=== PATIENT | female | born 1990 | race Caucasian/White ===

== ENCOUNTER 2016-09-13 21:01 | Inpatient (IN) | payer OTHER ==
[2016-09-13] MEDS ORDERED: SODIUM CHLORIDE 1,000 ML IV STA (21:25)
[2016-09-13] MEDS ORDERED: ACETAMINOPHEN 1000 MG/100 ML VIAL (NON FORMULARY) IVPB ONE (21:30)
[2016-09-13] MEDS ORDERED: ACETAMINOPHEN INJECTION 100 ML IVPB ONE (21:43)
[2016-09-13 21:45] LABS: BASOPHIL 0.8 % (0-2.0); EOSINOPHIL 1.8 % (0-4.5); MCHC 32.6 g/dl (32.0-36.0); MEAN PLT VOLUME 9.7 fl (7.5-11.1); NEUTROPHILS 73.1 % (42.8-82.8); PLATELET COUNT 311 K/MM3 (134-434); RDW 16.6 % (11.6-15.6); WHITE BLOOD COUNT 9.3 K/mm3 (4.0-10.0)
--- NOTE | 2016-09-13 22:07 | PDOC ---
History of Present Illness - History of Present Illness Initial Comments: 09/13/16 22:08 Patient is a 25 year old female with significant medical hx of anemia, asthma, and hypothyroidism who is presenting to the ED with two weeks of vaginal bleeding that worsened today. Two weeks ago the patient took an pill from [facility], and then took four more the following day (as prescribed). She states that she passed a few blood clots afterwards and then had two weeks of a regular period. This morning the patient woke up with severe abdominal cramping and passed a large blood clot; she has been heavily bleeding since. The patient endorses some lower back pain and feeling as if she is going to faint. She states that her abdominal pain has become sharp while being in the ED. The patient had a similar experience two years after taking pills. She was admitted to [facility] and needed a blood transfusion. Patient has irregular menses. LNMP: 07/07/16; /A2 Last : full term, <Ana Lilia Benitez - Last Filed: 09/14/16 00:02> - General History Source: Patient Exam Limitations: No Limitations <Tam Hodges - Last Filed: 09/14/16 00:37> - General Chief Complaint: Vaginal Bleeding Stated Complaint: VAGINAL BLEEDING Time Seen by Provider: 09/13/16 21:24 Past History <Ana Lilia Benitez - Last Filed: 09/14/16 00:02> - Past Medical History Anemia: Yes Asthma: Yes Thyroid Disease: Yes - Immunization History Immunization Up to Date: Yes - Psycho/Social/Smoking Cessation Hx Anxiety: No Suicidal Ideation: No Smoking Status: No Smoking History: Never smoked Number of Cigarettes Smoked Daily: 0 <Tam Hodges - Last Filed: 09/14/16 00:37> - Past Medical History Allergies/Adverse Reactions: Allergies Allergy/AdvReac Type Severity Reaction Status Date / Time No Known Allergies Allergy Verified 09/13/16 21:04 Home Medications: Ambulatory Orders Levothyroxine [Synthroid -] 112 mcg PO DAILY 10/20/11 Albuterol Sulfate Inhaler - [Ventolin HFA Inhaler -] 2 inh IH Q4H PRN #1 inh 22/06 Benzonatate [Tessalon Perle] 100 mg PO TID PRN #30 capsule 02/21/12 Cetirizine HCl [Zyrtec] 10 mg PO DAILY #0 capsule 02/21/12 Salmeterol/Fluticasone [Advair 250Mcg/50Mcg] 1 inh PO BID #1 diskus 02/21/12 Review of Systems - Review of Systems Comments:: 09/13/16 22:09 GENERAL/CONSTITUTIONAL: No fever or chills. No weakness. HEAD, EYES, EARS, NOSE AND THROAT: No change in vision. No ear pain or discharge. No sore throat. CARDIOVASCULAR: No chest pain or shortness of breath. RESPIRATORY: No cough, wheezing, or hemoptysis. GASTROINTESTINAL: Abdominal pain, cramping. No nausea, vomiting, diarrhea or constipation. GENITOURINARY: Vaginal bleeding. No dysuria, frequency, or change in urination. MUSCULOSKELETAL: Lower back pain. No joint or muscle swelling or pain. No neck or back pain. SKIN: No rash NEUROLOGIC: No headache, vertigo, loss of consciousness, or change in strength/ sensation. <Ana Lilia Benitez - Last Filed: 09/14/16 00:02> *Physical Exam - Vital Signs Last Vital Signs Temp Pulse Resp BP Pulse Ox 99 F 135 H 20 157/95 99 09/13/16 21:04 09/13/16 21:04 09/13/16 21:04 09/13/16 21:04 09/13/16 21:04 - Physical Exam Comments: 09/13/16 22:11 GENERAL: Uncomfortable appearing. Awake, alert, and fully oriented. HEAD: No signs of trauma EYES: PERRLA, EOMI, sclera anicteric, conjunctiva clear ENT: Auricles normal inspection, hearing grossly normal, nares patent, oropharynx clear without exudates. Moist mucosa NECK: Normal ROM, supple, no lymphadenopathy, JVD, or masses LUNGS: Breath sounds equal, clear to auscultation bilaterally. No wheezes, and no crackles HEART: Regular rate and rhythm, normal S1 and S2, no murmurs, rubs or gallops ABDOMEN: Soft, suprapubic tenderness, normoactive bowel sounds. No guarding, no rebound. No masses EXTREMITIES: Normal range of motion, no edema. No clubbing or cyanosis. No cords, erythema, or tenderness NEUROLOGICAL: Cranial nerves II through XII grossly intact. Normal speech, normal gait SKIN: Warm, Dry, normal turgor, no rashes or lesions noted. ENDOCRINE: No increased thirst. No abnormal weight change. HEMATOLOGIC/LYMPHATIC: No anemia, easy bleeding, or history of blood clots. ALLERGIC/IMMUNOLOGIC: No hives or skin allergy. PELVIC: Profuse vaginal bleeding. Cervical Os closed. Cervical tenderness appreciated. <Ana Lilia Benitez - Last Filed: 09/14/16 00:02> - Vital Signs Last Vital Signs Temp Pulse Resp BP Pulse Ox 99 F 135 H 20 157/95 99 09/13/16 21:04 09/13/16 21:04 09/13/16 21:04 09/13/16 21:04 09/13/16 21:04 <Tam Hodges - Last Filed: 09/14/16 00:37> ED Treatment Course - LABORATORY CBC & Chemistry Diagram: 09/13/16 23:19 09/13/16 21:30 - ADDITIONAL ORDERS Additional order review: 09/13/16 21:30 RBC 3.68 MCV 86.0 MCHC 32.6 RDW 16.6 H MPV 9.7 Neutrophils % 73.1 Lymphocytes % 16.7 Monocytes % 7.6 Eosinophils % 1.8 Basophils % 0.8 - RADIOLOGY Radiograph Interpretation: 09/14/16 00:02 Manager Ambulatory: ([email or web address]) Report Date: 09/13/2016 22:17:00 Report Status: Preliminary Begin of Report Content Referring Physician: Tam Hodges Patient Name: Sydni Sauer This is a preliminary report by imaging waste minimization technician Exam: Transabdominal and endovaginal sonogram and duplex sonography Images: 45 Clinical indication: Status post methotrexate with vaginal bleed. Findings: The uterus is anteverted and measures 9.6 x 4.8 x 6.2 cm on transabdominal images. The left ovary measures 3.2 x 1.6 x 2.7 cm contains follicles and a follicular cyst. Has a normal appearance and demonstrates normal arterial flow on color Doppler images. The right ovary measures 2.4 x 1.7 x 2.2 cm contains follicles has a normal appearance and demonstrates normal arterial flow on color Doppler images. The endometrium is thickened and heterogeneous with anechoic foci and focal hypervascularity seen in the mid uterine segment. The endometrium is thickened up to 1.4 cm in diameter with echogenic material seen in the endocervical canal. No free fluid seen Impression: Thickened vascular heterogeneous endometrium with complex material extending into the endocervical canal, likely passing products of conception. Normal appearance of both ovaries with normal vascular flow seen bilaterally. THIS DOCUMENT HAS BEEN ELECTRONICALLY SIGNED Elian Goodrich M.D. 09/13/2016 23:48 JAGRUTI Nguyen Please call Imaging Gravel Machine Operator [phone] ([phone]) with questions. End of Report Content - Medications Given in the ED: ED Medications Discontinued Medications Generic Name Dose Route Start Last Admin Trade Name Freq PRN Reason Stop Dose Admin Acetaminophen 1,000 mg 09/13/16 21:30 09/13/16 21:48 Ofirmev Injection - IVPB 09/13/16 21:31 1,000 mg ONCE ONE Administration <Ana Lilia Benitez - Last Filed: 09/14/16 00:02> - LABORATORY CBC & Chemistry Diagram: 09/13/16 23:19 09/13/16 21:30 - ADDITIONAL ORDERS Additional order review: 09/13/16 21:30 RBC 3.68 MCV 86.0 MCHC 32.6 RDW 16.6 H MPV 9.7 Neutrophils % 73.1 Lymphocytes % 16.7 Monocytes % 7.6 Eosinophils % 1.8 Basophils % 0.8 - Medications Given in the ED: ED Medications Discontinued Medications Generic Name Dose Route Start Last Admin Trade Name Freq PRN Reason Stop Dose Admin Acetaminophen 1,000 mg 09/13/16 21:30 09/13/16 21:48 Ofirmev Injection - IVPB 09/13/16 21:31 1,000 mg ONCE ONE Administration <Tam Hodges - Last Filed: 09/14/16 00:37> Medical Decision Making - Medical Decision Making 09/13/16 22:03 A portion of this note was documented by scribe services under my direction. I have reviewed the details of the note, within reason, and agree with the documentation with the following case summary and management plan written by me. Patient treated in the ED. Nursing notes are reviewed and incorporated into the medical decision-making. Vital signs reviewed. Peripheral IV access obtained by the nurse, laboratory studies are drawn and sent, reviewed and interpreted by myself. Vital Signs Temp Pulse Resp BP Pulse Ox 99 F 135 H 20 157/95 99 09/13/16 21:04 09/13/16 21:04 09/13/16 21:04 09/13/16 21:04 09/13/16 21:04 25-year-old female with past medical history of asthma, presents with profuse vaginal bleeding. The patient reports that she was approximately 6 weeks when she underwent methotrexate therapy 2 weeks ago at [facility] for a planned medical . Patient reported some vaginal spotting reported profuse bleeding and suprapubic cramping and abdominal pain today. Patient reports that she had a similar incident 2 years ago where she was admitted to [facility] and required blood transfusions. Denies any prior history of fibroids or ovarian cysts. I suspect that with the use of methotrexate, this had let to the patient's profuse vaginal bleeding. There is quite bit of blood in the vaginal vault and the patient's tachycardic. court recording monitor ordered. IV fluids ordered. Labs and type and screen ordered. Transvaginal ultrasound. We'll need to have serial hct and discuss case with COFFEE BREWER. 09/14/16 00:33 CBC, BMP 09/13/16 23:19 09/13/16 21:30 CMP Sodium 138 mmol/L (136-145) 09/13/16 21:30 Potassium 3.6 mmol/L (3.5-5.1) 09/13/16 21:30 Chloride 104 mmol/L (98-107) 09/13/16 21:30 Carbon Dioxide 25 mmol/L (21-32) 09/13/16 21:30 Anion Gap 9 (8-16) 09/13/16 21:30 BUN 12 mg/dL (7-18) 09/13/16 21:30 Creatinine 0.9 mg/dL (0.55-1.02) 09/13/16 21:30 Creat Clearance w eGFR > 60 (>60) 09/13/16 21:30 Random Glucose 99 mg/dL (74-106) 09/13/16 21:30 Calcium 8.8 mg/dL (8.5-10.1) 09/13/16 21:30 Total Bilirubin 0.9 mg/dL (0.2-1.0) 09/13/16 21:30 AST 17 U/L (15-37) 09/13/16 21:30 ALT 15 U/L (12-78) 09/13/16:30 Alkaline Phosphatase 54 U/L (45-117) 09/13/16 21:30 Total Protein 7.6 g/dl (6.4-8.2) 09/13/16: Albumin 4.0 g/dl (3.4-5.0) 09/13/16: Beta HCG, Quant 41734.0 mIU/ml 09/13/16: CBC 10.3 --> 8.3 (after receiving 400cc of IV NS). Pt continues to have vaginal bleed. Ultrasound shows: thickened vascular heterogensou endometrium with complex material extending into the endocervical canal, likely passing products of conceptions. Case discussed with Dr. Lewis. Given the drop in Hgb, will need to obtain serial Hcts. At this time, recommends 0.2 mg IM methergine and accepts patient for admission. Case discussed in detail with admitting physician including history, physical exam and ancillary studies. Admitting physician has assumed care for the patient, will follow all pending diagnostics and will complete the evaluation and treatment. <aTm Hodges - Last Filed: 09/14/16 00:37> *DC/Admit/Observation/Transfer - Attestations Scribe Attestion: 09/13/16 22:13 Documentation prepared by Ana Lilia Benitez, acting as medical affairs specialist for Tam Hodges MD. <Ana Lilia Benitez - Last Filed: 09/14/16 00:02> - Discharge Dispostion Admit: Yes <Tam Hodges - Last Filed: 09/14/16 00:37> Diagnosis at time of Disposition: Vaginal bleeding - Discharge Dispostion Condition at time of disposition: Stable
[2016-09-13 22:08] LABS: ANION GAP 9 (8-16); BILIRUBIN,TOTAL 0.9 mg/dL (0.2-1.0); CALCIUM 8.8 mg/dL (8.5-10.1); CO2 25 mmol/L (21-32); CREATININE 0.9 mg/dL (0.55-1.02); GLUCOSE,RANDOM 99 mg/dL (74-106); SGOT/AST 17 U/L (15-37); SGPT/ALT 15 U/L (12-78); TOT PROT 7.6 g/dl (6.4-8.2)
[2016-09-13 22:24] LABS: ALK PHOS 54 U/L (45-117)
[2016-09-13] MEDS ORDERED: morphine CARPU-JECT 4 MG/1 ML DISP.SYRIN IVPUSH ONE (23:17)
[2016-09-13] MEDS ORDERED: morphine CARPU-JECT 2 MG/1 ML DISP.SYRIN IVPUSH ONE (23:20)
[2016-09-13] MEDS ORDERED: morphine CARPU-JECT 2 MG/1 ML DISP.SYRIN ONE (23:22)
[2016-09-13 23:34] LABS: BASOPHIL 0.5 % (0-2.0); EOSINOPHIL 1.2 % (0-4.5); MCHC 32.2 g/dl (32.0-36.0); MEAN CELL VOLUME 86.9 fl (80-96); MEAN PLT VOLUME 9.9 fl (7.5-11.1); NEUTROPHILS 79.4 % (42.8-82.8); PLATELET COUNT 247 K/MM3 (134-434); RDW 16.5 % (11.6-15.6); WHITE BLOOD COUNT 9.7 K/mm3 (4.0-10.0)
[2016-09-14] MEDS ORDERED: METHYLERGONOVINE MALEATE 0.2 MG/1 ML AMP IM ONE (00:29)
[2016-09-14] MEDS ORDERED: METHYLERGONOVINE MALEATE 0.2 MG/1 ML AMP ONE (00:52)
[2016-09-14] MEDS: DEXTROSE 5%-NORMAL SALINE 1,000 ML IV SCH ×2 (01:00→15:00)
[2016-09-14 02:21] VITALS: BMI 32.5
[2016-09-14] MEDS ORDERED: oxyCODONE HCL 5 MG TABLET PO ONE (06:00)
[2016-09-14 09:20] LABS: URINE APPEARANCE SLCLOUDY; URINE BILIRUBIN NEGATIVE (NEGATIVE); URINE COLOR YELLOW; URINE GLUCOSE (UA) NEGATIVE (NEGATIVE); URINE KETONE NEGATIVE (NEGATIVE); URINE LEUK ESTERASE NEGATIVE (NEGATIVE); URINE NITRITE NEGATIVE (NEGATIVE); URINE UROBILINOGEN NEGATIVE E.U./dl (0.2-1.0)
[2016-09-14 09:21] LABS: URINE BLOOD 3+ (NEGATIVE); URINE PROTEIN 1+ (NEGATIVE)
[2016-09-14 09:27] LABS: URINE MUCUS MODERATE; URINE RBC 3187 /hpf (0-3); URINE WBC 44 /hpf (3-5)
[2016-09-14 09:48] LABS: MCH 27.3 pg (25.7-33.7); MCHC 31.4 g/dl (32.0-36.0); MEAN CELL VOLUME 86.9 fl (80-96); MEAN PLT VOLUME 9.3 fl (7.5-11.1); PLATELET COUNT 200 K/MM3 (134-434); RDW 16.5 % (11.6-15.6); WHITE BLOOD COUNT 4.8 K/mm3 (4.0-10.0)
--- NOTE | 2016-09-14 12:52 | HP ---
Admitting History and Physical - Admission Chief Complaint: vaginal bleeding History of Present Illness: 25 y/o s/p ETOP presents to hospital with bleeding. SHe was monitored and admitted with declining h/h and normal vitals. Pt today states with bleeding and dizziness and will elect for d nc . History Source: Patient Limitations to Obtaining History: No Limitations - Past Medical History ELECTRICAL CONTINUITY TESTER: No: Alzheimer's, CVA, Dementia, Migraine, Multiple Sclerosis, Peripheral Neuropathy, Parkinson's, Seizure, Syncope, TIA, Vertigo, Other Cardiovascular: No: AFIB, Aneurysm, Aortic Insufficiency, Aortic Stenosis, CAD, CHF, Deep Vein Thrombosis, HTN, Hyperlipdemia, MD, Mitral Insufficiency, Mitral Stenosis, Murmur, Pulmonary Hypertension, Other Pulmonary: No: Asthma, Bronchitis, Cancer, COPD, O2 Dependent, Pneumonia, Previously Intubated, Pulmonary Embolus, Pulmonary Fibrosis, Sleep Apnea, Other Gastrointestinal: No: Ascites, Cancer, Constipation, Crohn's Disease, Diverticulitis, Diverticulosis, Esophageal Varices, Gastritis, GERD, GI Bleed, Hemorrhoids, Hiatal Hernia, Inflamatory Bowel Disease, Irritable Bowel Disease, Pancreatitis, Peptic Ulcer Disease, Ulcerative Colitis, Other ...LMP: 07/07/16 ...: Yes Heme/Onc: No: Anemia, B12 Deficiency, Bleeding Disorder, Cancer, Current Chemotherapy, Current Radiation Therapy, Hemochromatosis, Hypercoaguable State, Myeloproliferative Synd, Sickle Cell Disease, Sickle Cell Trait, Thrombocytopenia, Other Infectious Disease: No: AIDS, C-Diff, Herpes Zoster, HIV, MRSA, STD's, Tuberculosis, VREF, Other Musculoskeletal: No: Bursitis, Chronic low back pain, Hemiparesis, Hemiplegia, Osteoarthritis, Paraplegia, Other Rheumatology: No: Fibromyalgia, Gout, Lupus, Rheumatoid Arthritis, Sarcoidosis, Vasculitis, Other Endocrine: No: Mcintosh's Disease, Zurdo's Disease, Diabetes Insipidus, Diabetes Mellitus, Hyperparathyroidism, Hyperthyroidism, Hypothyroidism, Osteopenia, SIADH, Other Dermatology: No: Basal Cell, Cellulitis, Eczema, Melanoma, Psoriasis, Squamous Cell, Other - Past Surgical History Past Surgical History: No: None, AAA Repair, AICD, Amputation, Appendectomy, Arthrosocopy, AV Fistula/Graft, Bariatric Surgery, Breast Biopsy, Bypass, CABG, Carotid Endarterectomy, Cataract Removal, Cholecystectomy, Colectomy, Colonoscopy, Colostomy, Craniotomy, , Cystectomy, Hernia Repair, Hysterectomy, Ileal Conduit, Ileosotomy, Joint Replacement, Kidney Transplant, Laminectomy, Liver Transplant, Mastectomy, Nephrectomy, Oopherectomy, Orchiectomy, Permanent Pacemaker, Prostatectomy, Splenectomy, Stent, Thoracotomy , TURP, Tonsillectomy, Tubal Ligation, Upper Endoscopy, Valve Replacement, Vasectomy, Vein Stripping/Ligation - Advance Directives Advance Directives: No: Living Will, Health Care Proxy, DNR, Organ Donor, Tissue Donor, MOLST - Smoking History Smoking history: Never smoked Aproximately how many cigarettes per day: 0 - Alcohol/Substance Use Hx Alcohol Use: No History of Substance Use: denies: None, Cocaine, Heroin, Marijuana, Prescription , Tranquilizers - Social History Usual Living Arrangement: No: Alone, With Spouse, With Parent, With Significant Other, With Child, Assisted Living, Custodial, Other Home Medications - Allergies Allergies/Adverse Reactions: Allergies Allergy/AdvReac Type Severity Reaction Status Date / Time No Known Allergies Allergy Verified 09/13/16 21:04 - Home Medications Home Medications: Ambulatory Orders Levothyroxine [Synthroid -] 112 mcg PO DAILY 10/20/11 Albuterol Sulfate Inhaler - [Ventolin HFA Inhaler -] 2 inh IH Q4H PRN #1 inh 22/06 Benzonatate [Tessalon Perle] 100 mg PO TID PRN #30 capsule 02/21/12 Cetirizine HCl [Zyrtec] 10 mg PO DAILY #0 capsule 02/21/12 Salmeterol/Fluticasone [Advair 250Mcg/50Mcg] 1 inh PO BID #1 diskus 02/21/12 Review of Systems - Review of Systems Constitutional: reports: Weakness Eyes: reports: No Symptoms HENT: reports: No Symptoms Neck: reports: No Symptoms Cardiovascular: reports: No Symptoms Respiratory: reports: No Symptoms Gastrointestinal: reports: No Symptoms Genitourinary: reports: Discharge, Vaginal Bleeding Breasts: reports: No Symptoms Reported Musculoskeletal: reports: No Symptoms Integumentary: reports: No Symptoms Neurological: reports: No Symptoms Endocrine: reports: No Symptoms Hematology/Lymphatic: reports: No Symptoms Psychiatric: reports: No Symptoms Physical Examination Vital Signs: Vital Signs Temperature 97.7 F 09/14/16 09:00 Pulse Rate 69 09/14/16 09:00 Respiratory Rate 20 09/14/16 09:00 Blood Pressure 103/65 09/14/16 09:00 O2 Sat by Pulse Oximetry (%) 100 09/14/16 09:00 Constitutional: Yes: Well Nourished Eyes: Yes: WNL HENT: Yes: WNL Neck: Yes: WNL Cardiovascular: Yes: WNL Respiratory: Yes: WNL Gastrointestinal: Yes: WNL (has vag bleeding) Labs: CBC, BMP 09/14/16 09:10 Assessment/Plan as absove admit labs transformation coach to OR
[2016-09-14] MEDS ORDERED: MIDAZOLAM HCL 2 MG/2 ML SINGLE DOSE VIAL ONE ×2 (13:42)
[2016-09-14] MEDS ORDERED: PROPOFOL 20 ML ONE (13:42)
[2016-09-14] MEDS ORDERED: LIDOCAINE HCL/PF 2% SDV 5ML VIAL ONE (13:42)
[2016-09-14] MEDS ORDERED: ONDANSETRON 4 MG/2 ML VIAL IVPUSH PRN (13:58)
[2016-09-14] MEDS ORDERED: oxyCODONE HCL 5 MG TABLET PO PRN (13:58)
--- NOTE | 2016-09-14 13:59 | PN ---
Progress Note (short form) - Note Progress Note: d n c completed, tisues seen at os. Uncomplicated
[2016-09-14] MEDS ORDERED: PROMETHAZINE HCL 25 MG/1 ML VIAL ONE (14:27)
[2016-09-14] MEDS ORDERED: PROMETHAZINE HCL 25 MG/1 ML VIAL IVPUSH PRN (14:31)
[2016-09-14 18:11] LABS: BASOPHIL 0.7 % (0-2.0); EOSINOPHIL 1.6 % (0-4.5); MCH 27.7 pg (25.7-33.7); MCHC 31.8 g/dl (32.0-36.0); NEUTROPHILS 66.3 % (42.8-82.8); PLATELET COUNT 189 K/MM3 (134-434); RDW 16.4 % (11.6-15.6); WHITE BLOOD COUNT 4.7 K/mm3 (4.0-10.0)
[2016-09-15] MEDS ORDERED: ACETAMINOPHEN 1000 MG/100 ML VIAL (NON FORMULARY) IVPB ONE (01:51)
--- NOTE | 2016-09-15 01:55 | HOSP ---
Subjective - Review of Symptoms Events since last encounter: 09/15/2016 Was paged by the nurse at 1:30am to inform that patient has been complaining of dizziness. Went to assess the patient. The RN mentioned that he called Dr. Hemphill and he recommended the hospitalist to see the patient. As per the patient, she has been having dizziness for the past few days which has been the same. She gets vertigo on/off and now has terrible frontal headache with pain in her eye balls, 6/10 in intensity, throbbing in nature. Has photophobia and wanted the room light to be turned off. Denies loc, tingling , numbness, nausea or vomiting. Also states that she is still bleeding and has mild abdominal cramps. Patient mentions that she has been coughing since 2 days, productive, yellowish- whitish phelgm, no blood. Denies fever, chills, rigors and sweating. Due to coughing has soreness in her chest. Has Shortness of breath on/off. Physical Examination: Vitals: BP-85/45mmHg ; P-69bpm ; Temp-97.9F ; Spo2- 99% at RA ; RR- 15 General: Young female, awake, alert, oriented x 3, in no respiratory distress. HEENT: EOM intact, no pallor or icterus. Chest: B/L lungs clear, no added sounds CVS: Regular, S1, S2 no murmur Abdomen: Soft, tenderness on palpation over the lower abdomen, no organomegaly. Extremities: peripheral pulses intact, no edema. A/P # Frontal Headache with photophobia-unknown etiology Will order one time dose of IV tylenol. # SOB, cough- R/O pneumonia Will order Chest x-ray stat Nasal oxygen PRN # Abdominal cramps-likely due to the procedure (Dilatation and Curettage) Still has vaginal bleeding # Anemia likely due to blood loss. Latest Hb-6.8. Received one unit of blood and is going to receive the second unit which will finish at around 6am. Will order repeat CBC at 7:30 am # Hypotensive-likely due to volume loss Patient on IV fluids and blood transfusion Monitor blood pressure closely. Recommended RN to inform the MD stat if blood pressure drops from previous readings. Plan of care explained to the patient. She verbalized understanding. Case discussed with Dr. Sánchez. Physical Examination Vital Signs: Vital Signs Temperature 97.8 F 09/14/16 21:00 Pulse Rate 70 09/14/16 21:00 Respiratory Rate 16 09/14/16 21:00 Blood Pressure 91/51 09/14/16 21:00 O2 Sat by Pulse Oximetry (%) 100 09/14/16 20:00 Labs: CBC, BMP 09/14/16 17:42 Visit type - Emergency Visit Emergency Visit: Yes ED Registration Date: 09/14/16 Care time: The patient presented to the Emergency Department on the above date and was hospitalized for further evaluation of their emergent condition. - New Patient This patient is new to me today: Yes Date on this admission: 09/15/16 - Critical Care Critical Care patient: No
[2016-09-15 06:30] VITALS: BP 103/62; PULSE 64; TEMP 97.8
[2016-09-15 08:15] LABS: EOSINOPHIL 2.3 % (0-4.5); MCH 28.6 pg (25.7-33.7); MCHC 33.4 g/dl (32.0-36.0); MEAN CELL VOLUME 85.7 fl (80-96); MEAN PLT VOLUME 8.8 fl (7.5-11.1); NEUTROPHILS 53.5 % (42.8-82.8); PLATELET COUNT 158 K/MM3 (134-434); RDW 16.7 % (11.6-15.6); WHITE BLOOD COUNT 4.9 K/mm3 (4.0-10.0)
[2016-09-15 09:11] LABS: CALCIUM 7.5 mg/dL (8.5-10.1); CREATININE 0.7 mg/dL (0.55-1.02)
[2016-09-15] MEDS: oxyCODONE HCL 5 MG TABLET PO PRN ×2 (10:05→18:50)
--- NOTE | 2016-09-17 14:02 | PATH ---
Surgical Pathology Report Patient Name: JHONY JON [facility]. Rec. #: [id number] /Age/Gender: 1990 (Age: 25) / F Account: [id number] Location: [address] [place] [address] Taken: 09/14/2016 Received: 09/16/2016 Reported: 09/17/2016 Physicians: Butch Lewis M.D. Specimen(s) Received UTERINE CONTENTS Clinical History Incomplete Final Diagnosis UTERINE CONTENTS, EVACUATION: CHORIONIC VILLI CONSISTENT WITH PRODUCTS OF CONCEPTION, ALONG WITH NECROTIC AND HEMORRHAGIC TISSUE. Electronically Signed Stevan Kay M.D. Gross Description Received in formalin labeled "intrauterine suction," is a 10.5 x 9.0 x 1.2 cm aggregate of arrieta-brown soft tissue fragments admixed with blood clot. No definite villous tissue or somatic tissue is identified. Technical Operations Manager sections are submitted in 3 cassettes. /09/16/2016 [facility]/09/16/2016
== END 2016-09-15 19:31 | disposition home or self-care (01) | DRG 770 ==
LOC: JER 21:01 → JERBED 09-14 00:37 → UNDOADMIN 09-14 00:47 → JERBED 09-14 00:47 → J6S 09-14 01:38
PROVIDERS: ADMIT Obstetrics & Gynecology; ATTEND Obstetrics & Gynecology
PROC: 10D17ZZ Extraction of Products of Conception, Retained, Via Natural or Artificial Opening (ICD-10-PCS; principal; 2016-09-14 12:00)
PROC: 30233N1 Transfusion of Nonautologous Red Blood Cells into Peripheral Vein, Percutaneous Approach (ICD-10-PCS; 2016-09-15)
DX: O03.4 Incomplete spontaneous abortion without complication (principal); N93.8 Other specified abnormal uterine and vaginal bleeding; E03.9 Hypothyroidism, unspecified; J45.909 Unspecified asthma, uncomplicated; D64.9 Anemia, unspecified; G44.89 Other headache syndrome; H53.149 Visual discomfort, unspecified; D50.0 Iron deficiency anemia secondary to blood loss (chronic)
CPT/HCPCS: 36415; 36430; 71010-TC; 76830-TC; 80048; 80053; 81003; 81015; 84702; 85025; 85027; 86850; 86900; 86901; 86922; 87086; 88305-TC; 94760; 99284-25; P9038; P9058

== ENCOUNTER 2016-09-18 18:29 | Inpatient (IN) | payer OTHER ==
[2016-09-18 18:34] VITALS: BMI 32.9
[2016-09-18] MEDS ORDERED: SODIUM CHLORIDE 1,000 ML IV STA (19:07)
[2016-09-18] MEDS ORDERED: CARBOPROST TROMETHAMINE 250 MCG/ML AMPUL IM ONE (19:22)
[2016-09-18] MEDS ORDERED: METHYLERGONOVINE MALEATE 0.2 MG/1 ML AMP IM ONE (19:22)
[2016-09-18] MEDS ORDERED: METHYLERGONOVINE MALEATE 0.2 MG/1 ML AMP ONE (19:30)
[2016-09-18 19:32] LABS: BASOPHIL 0.6 % (0-2.0); EOSINOPHIL 2.1 % (0-4.5); MCH 28.4 pg (25.7-33.7); MCHC 32.7 g/dl (32.0-36.0); MEAN CELL VOLUME 86.9 fl (80-96); MEAN PLT VOLUME 9.9 fl (7.5-11.1); NEUTROPHILS 64.8 % (42.8-82.8); PLATELET COUNT 291 K/MM3 (134-434); RDW 16.4 % (11.6-15.6); WHITE BLOOD COUNT 7.1 K/mm3 (4.0-10.0)
--- NOTE | 2016-09-18 19:34 | PDOC ---
History of Present Illness <Mirza Ramon - Last Filed: 09/18/16 22:57> - General History Source: Patient, Old Records Exam Limitations: No Limitations - History of Present Illness Initial Comments: 09/18/16 20:37 The patient is a 25 year old female, with a significant past medical history of anemia, asthma and thyroid disease, who presents to the emergency department with heavy vaginal bleeding. She reports that she was 6 weeks when she [facility] She was seen in the ED on 09/13/2016 for the same symptoms, including abdominal cramping and was admited for anemia. She recieved a total of 2 blood transfusions. The patient had a similar episode 2 years ago, for which she was admitted to [facility] and required blood transfusions as well. The patitent denies any prior history of fibroids or ovarian cysts. At that time she had a transvaginal ultrasound, which showed: Thickened vascular heterogeneous endometrium with complex material extending into the endocervical canal, likely passing products of conception. Normal appearance of both ovaries with normal vascular flow seen bilaterally. The patient denies chest pain, shortness of breath, headache and dizziness. Denies fever, chills, nausea, vomit, diarrhea and constipation. 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 <Vince Mercado - Last Filed: 09/18/16 23:50> - General Chief Complaint: Vaginal Bleeding Stated Complaint: VAGINAL BLEEDING Time Seen by Provider: 09/18/16 18:53 Past History - Past Medical History Anemia: Yes Asthma: Yes Thyroid Disease: Yes - Reproductive History Cervical CA: No Dysfunctional Uterine Bleeding: No Ectopic : Yes Endometrial CA: No Polycystic Ovaries: No Tubal Ligation: No - Immunization History Immunization Up to Date: Yes - Psycho/Social/Smoking Cessation Hx Anxiety: No Suicidal Ideation: No Smoking Status: No Smoking History: Never smoked Number of Cigarettes Smoked Daily: 0 Hx Alcohol Use: No Drug/Substance Use Hx: No <Mirza Ramon - Last Filed: 09/18/16 22:57> <Vince Mercado - Last Filed: 09/18/16 23:50> - Past Medical History Allergies/Adverse Reactions: Allergies Allergy/AdvReac Type Severity Reaction Status Date / Time No Known Allergies Allergy Verified 09/18/16 18:35 Home Medications: Ambulatory Orders Levothyroxine [Synthroid -] 100 mcg PO DAILY 10/20/11 Albuterol Sulfate Inhaler - [Ventolin HFA Inhaler -] 2 inh IH Q4H PRN #1 inh 22/06 Review of Systems - Review of Systems Able to Perform ROS?: Yes Comments:: 09/18/16 20:37 CONSTITUTIONAL: No fever, no chills, no fatigue EYES: No visual changes ENT: No ear pain, no sore throat CARDIOVASCULAR: No chest pain, no palpitations RESPIRATORY: No cough, no SOB GI: No abdominal pain, no nausea, no vomiting, no constipation, no diarrhea GENITOURINARY: +Vaginal bleeding. No dysuria, no frequency. MUSKULOSKELETAL: No backpain, no joint pain, no myalgias SKIN: No rash NEURO: No headache <Vince Mercado - Last Filed: 09/18/16 23:50> *Physical Exam - Vital Signs Last Vital Signs Temp Pulse Resp BP Pulse Ox 98.2 F 95 H 20 120/68 100 09/18/16 18:31 09/18/16 18:31 09/18/16 18:31 09/18/16 18:31 09/18/16 18:31 <Mirza Ramon - Last Filed: 09/18/16 22:57> - Vital Signs Last Vital Signs Temp Pulse Resp BP Pulse Ox 98.2 F 95 H 20 120/68 100 09/18/16 18:31 09/18/16 18:31 09/18/16 18:31 09/18/16 18:31 09/18/16 18:31 - Physical Exam Comments: 09/18/16 20:37 CONSTITUTIONAL: Pale-appearing; well-nourished HEAD: Normocephalic; atraumatic EYES: PERRL; EOM intact ENMT: External appears normal; normal oropharynx NECK: Supple; non-tender; no cervical lymphadenopathy CARD: Normal S1, S2; no murmurs, rubs, or gallops RESP: Normal chest excursion with respiration; breath sounds clear and equal bilaterally; no wheezes, rhonchi, or rales ABD: Soft, non-distended; non-tender; no palpable organomegaly, no palpable hernias EXT: Normal ROM in all four extremities; non-tender to palpation; distal pulses intact SKIN: Warm, dry, no rash NEURO: No focal neurological deficiencies. PELVIC EXAM: +Large amount of blood and brisk pooling of bright red blood in vaginal vault, unable to evaluated vaginal os <Vince Mercado - Last Filed: 09/18/16 23:50> ED Treatment Course - LABORATORY CBC & Chemistry Diagram: 09/18/16 22:38 09/18/16 19:08 <Mirza Ramon - Last Filed: 09/18/16 22:57> - LABORATORY CBC & Chemistry Diagram: 09/18/16 22:38 09/18/16 19:08 - ADDITIONAL ORDERS Additional order review: 09/18/16 19:08 RBC 3.96 D MCV 86.9 MCHC 32.7 RDW 16.4 H MPV 9.9 D Neutrophils % 64.8 D Lymphocytes % 22.8 D Monocytes % 9.7 Eosinophils % 2.1 Basophils % 0.6 - RADIOLOGY Radiograph Interpretation: 09/18/16 22:18 Transvaginal ultrasound Reviewed by: Dr. Thony Ibrahim Impression: Thickened endometrium measuring 1.3 cm in AP dimension with heterogenous echotexture and vascular flow on the color doppler images suspicious for retained products of conception. - Medications Given in the ED: ED Medications Discontinued Medications Generic Name Dose Route Start Last Admin Trade Name Freq PRN Reason Stop Dose Admin Carboprost Tromethamine 200 mcg 09/18/16 19:22 09/18/16 19:41 Hemabate - IM 09/18/16 19:23 200 mcg ONCE ONE Administration Methylergonovine Maleate 0.2 mg 09/18/16 19:22 09/18/16 19:33 Methergine Injection - IM 09/18/16 19:23 0.2 mg ONCE ONE Administration <Vince Mercado - Last Filed: 09/18/16 23:50> Medical Decision Making - Medical Decision Making 09/18/16 19:33 Patient is a 25-year-old female status post medical 3 weeks previously , status post D&C for incomplete 5 days previously presents with severe vaginal bleeding for the past 24 hours. On initial evaluation, patient's pale appearing, normotensive with a heart rate of 95. Pelvic exam reveals large amount of clots and brisk Alvaro of red blood. I'm unable to evaluate for cervical as opening. Case discussed with Dr. Lewis. He recommends IV fluid resuscitation, Methergine and Hemabate IM with packed cells as needed followed by an ultrasound. Will resuscitate the patient. Will transfuse as needed. Will reconsult [employer]. 09/18/16 22:57 Patient reassessed. Patient is resting comfortably with intermittent leading, passing several large clots an hour. Patient's vital signs have stabilized with a heart rate of 65, blood pressure 110/72; first hematocrit was noted to be 34. Second CBC is currently pending. Transvaginal ultrasound revealed thickened endometrium of 1.3 cm, with heterogeneous echotexture and the blood flow by Doppler suggestive of retained products. I reconsulted Dr. Lewis of [employer]. Patient will be admitted, she will be nothing by mouth past midnight and will undergo additional D&C for incomplete AB. <Mirza Ramon - Last Filed: 09/18/16 22:57> - Medical Decision Making 09/18/16 19:47 Dr. Lewis was called regarding the patient at 7:09pm Dr. Lewis was consulted regarding the patient at 7:16pm [phone] Dr. Lewis was called again at 10:23pm Dr. Lewis was consulted regarding the patient at 10:26pm [phone] <Vince Mercado - Last Filed: 09/18/16 23:50> *DC/Admit/Observation/Transfer - Discharge Dispostion Admit: Yes - Attestations Physician Attestion: 09/18/16 22:57 The documentation was prepared by the scribe under my direct supervision. I have reviewed the documentation which correctly represents the findings, medical decision-making and critical action taken by me. <Mirza Ramon - Last Filed: 09/18/16 22:57> - Attestations Scribe Attestion: 09/18/16 20:38 Documentation prepared by Vince Mercado, acting as medical office coordinator for Mirza Ramon MD <Vince Mercado - Last Filed: 09/18/16 23:50> Diagnosis at time of Disposition: Incomplete - Referrals Referrals: Butch Lewis MD [Primary Care Provider] -
[2016-09-18 19:43] LABS: INR 1.12 (0.82-1.09); PROTHROMBIN TIME (PATIENT) 12.3 SEC (9.98-11.88)
[2016-09-18] MEDS ORDERED: ONDANSETRON 4 MG/2 ML VIAL IVPB ONE (19:47)
[2016-09-18 19:53] LABS: ALBUMIN 3.9 g/dl (3.4-5.0); ALK PHOS 44 U/L (45-117); ANION GAP 10 (8-16); BILIRUBIN,TOTAL 0.9 mg/dL (0.2-1.0); CALCIUM 8.6 mg/dL (8.5-10.1); CO2 27 mmol/L (21-32); CREATININE 0.8 mg/dL (0.55-1.02); GLUCOSE,RANDOM 96 mg/dL (74-106); SGOT/AST 15 U/L (15-37); SGPT/ALT 16 U/L (12-78); TOT PROT 7.1 g/dl (6.4-8.2)
[2016-09-18] MEDS ORDERED: ACETAMINOPHEN 325 MG TABLET (FP) ONE (19:54)
[2016-09-18] MEDS ORDERED: ONDANSETRON 4 MG/2 ML VIAL ONE (19:55)
[2016-09-18] MEDS: ACETAMINOPHEN 325 MG TABLET (FP) PO ONE ×2 (19:57→19:59)
[2016-09-18] MEDS ORDERED: ACETAMINOPHEN 1000 MG/100 ML VIAL (NON FORMULARY) IVPB ONE (19:59)
[2016-09-18] MEDS ORDERED: FAMOTIDINE 20 MG/50 ML IVPB 50 ML IVPB ONE ×2 (20:04→20:16)
[2016-09-18] MEDS ORDERED: MAG HYDROX/AL HYDROX/SIMETH 355 ML ORAL.SUSP PO ONE (20:04)
[2016-09-18] MEDS ORDERED: ACETAMINOPHEN INJECTION 100 ML IVPB ONE (20:15)
[2016-09-18] MEDS ORDERED: MAG HYDROX/AL HYDROX/SIMETH 30 ML UNIT-DOSE CUP ONE (20:16)
[2016-09-18] MEDS ORDERED: morphine CARPU-JECT 4 MG/1 ML DISP.SYRIN IVPUSH ONE (20:54)
[2016-09-18] MEDS ORDERED: morphine CARPU-JECT 4 MG/1 ML DISP.SYRIN ONE (21:18)
[2016-09-18 22:44] LABS: BASOPHIL 0.4 % (0-2.0); EOSINOPHIL 0.3 % (0-4.5); MCH 28.1 pg (25.7-33.7); MCHC 32.1 g/dl (32.0-36.0); MEAN CELL VOLUME 87.4 fl (80-96); MEAN PLT VOLUME 10.2 fl (7.5-11.1); NEUTROPHILS 87.5 % (42.8-82.8); PLATELET COUNT 226 K/MM3 (134-434); RDW 16.6 % (11.6-15.6); WHITE BLOOD COUNT 12.6 K/mm3 (4.0-10.0)
[2016-09-18] MEDS ORDERED: DEXTROSE 5%-0.45% SALINE 1,000 ML IV SCH (22:45)
[2016-09-19] MEDS ORDERED: morphine CARPU-JECT 4 MG/1 ML DISP.SYRIN IVPUSH ONE (00:22)
[2016-09-19] MEDS ORDERED: morphine CARPU-JECT 4 MG/1 ML DISP.SYRIN ONE (00:33)
[2016-09-19] MEDS ORDERED: DEXTROSE 5%-0.45% SALINE 1,000 ML IV SCH (01:45)
[2016-09-19] MEDS ORDERED: IBUPROFEN 800 MG/8 ML IJ IVPB ONE ×4 (01:45→09:41)
[2016-09-19] MEDS ORDERED: METHYLERGONOVINE MALEATE 0.2 MG TABLET (FP) PO SCH ×2 (01:45→02:35)
--- NOTE | 2016-09-19 04:37 | HP ---
Admitting History and Physical - Admission Chief Complaint: vaginal bleeding History of Present Illness: 25 y/o s/p d n c on sat for incomplete ab returns today with vaginal bleeding. Pt states she went home and started today with bleeding. Sono today show ? clots vs retained POC. 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: Alzheimer's, CVA, Dementia, Migraine, Multiple Sclerosis, Peripheral Neuropathy, Parkinson's, Seizure, Syncope, TIA, Vertigo, Other Cardiovascular: No: AFIB, Aneurysm, Aortic Insufficiency, Aortic Stenosis, CAD, CHF, Deep Vein Thrombosis, HTN, Hyperlipdemia, FL, Mitral Insufficiency, Mitral Stenosis, Murmur, Pulmonary Hypertension, Other Pulmonary: No: Asthma, Bronchitis, Cancer, COPD, O2 Dependent, Pneumonia, Previously Intubated, Pulmonary Embolus, Pulmonary Fibrosis, Sleep Apnea, Other Gastrointestinal: No: Ascites, Cancer, Constipation, Crohn's Disease, Diverticulitis, Diverticulosis, Esophageal Varices, Gastritis, GERD, GI Bleed, Hemorrhoids, Hiatal Hernia, Inflamatory Bowel Disease, Irritable Bowel Disease, Pancreatitis, Peptic Ulcer Disease, Ulcerative Colitis, Other Hepatobiliary: No: Cirrhosis, Cholelithiasis, Cholecystitis, Choledocholithiasis , Hepatitis A, Hepatitis B, Hepatitis C, Other Renal/: No: Renal Failure, Renal Inusuff, BPH, Cancer, Hematuria, Hemodialysis , Neurogenic Bladder, Renal Calculi, UTI, Other Reproductive: No: Ectopic , Endometriosis, Fibroids, PID, Polycystic Ovary Syndrome, Postmenopausal, Other ...LMP: 07/06/16 ...: No Heme/Onc: No: Anemia, B12 Deficiency, Bleeding Disorder, Cancer, Current Chemotherapy, Current Radiation Therapy, Hemochromatosis, Hypercoaguable State, Myeloproliferative Synd, Sickle Cell Disease, Sickle Cell Trait, Thrombocytopenia, Other Infectious Disease: No: AIDS, C-Diff, Herpes Zoster, HIV, MRSA, STD's, Tuberculosis, VREF, Other Psych: No: Addictions, Anxiety, Bipolar, Depression, Panic, Psychosis, Schizophrenia, Other Musculoskeletal: No: Bursitis, Chronic low back pain, Hemiparesis, Hemiplegia, Osteoarthritis, Paraplegia, Other Rheumatology: No: Fibromyalgia, Gout, Lupus, Rheumatoid Arthritis, Sarcoidosis, Vasculitis, Other ENT: No: Allergic Rhinitis, Sinusitis, Other Endocrine: No: Trae's Disease, Zurdo's Disease, Diabetes Insipidus, Diabetes Mellitus, Hyperparathyroidism, Hyperthyroidism, Hypothyroidism, Osteopenia, SIADH, Other Dermatology: No: Basal Cell, Cellulitis, Eczema, Melanoma, Psoriasis, Squamous Cell, Other - Past Surgical History Past Surgical History: No: None, AAA Repair, AICD, Amputation, Appendectomy, Arthrosocopy, AV Fistula/Graft, Bariatric Surgery, Breast Biopsy, Bypass, CABG, Carotid Endarterectomy, Cataract Removal, Cholecystectomy, Colectomy, Colonoscopy, Colostomy, Craniotomy, , Cystectomy, Hernia Repair, Hysterectomy, Ileal Conduit, Ileosotomy, Joint Replacement, Kidney Transplant, Laminectomy, Liver Transplant, Mastectomy, Nephrectomy, Oopherectomy, Orchiectomy, Permanent Pacemaker, Prostatectomy, Splenectomy, Stent, Thoracotomy , TURP, Tonsillectomy, Tubal Ligation, Upper Endoscopy, Valve Replacement, Vasectomy, Vein Stripping/Ligation - Advance Directives Advance Directives: No: Living Will, Health Care Proxy, DNR, Organ Donor, Tissue Donor, MOLST - Smoking History Smoking history: Never smoked Aproximately how many cigarettes per day: 0 - Alcohol/Substance Use Hx Alcohol Use: No History of Substance Use: denies: None, Cocaine, Heroin, Marijuana, Prescription , Tranquilizers - Social History Usual Living Arrangement: No: Alone, With Spouse, With Parent, With Significant Other, With Child, Assisted Living, Care Home, Other Home Medications - Allergies Allergies/Adverse Reactions: Allergies Allergy/AdvReac Type Severity Reaction Status Date / Time No Known Allergies Allergy Verified 09/18/16 18:35 - Home Medications Home Medications: Ambulatory Orders Levothyroxine [Synthroid -] 100 mcg PO DAILY 10/20/11 Albuterol Sulfate Inhaler - [Ventolin HFA Inhaler -] 2 inh IH Q4H PRN #1 inh 22/06 Review of Systems - Review of Systems Constitutional: reports: No Symptoms Eyes: reports: No Symptoms HENT: reports: No Symptoms Neck: reports: No Symptoms Cardiovascular: reports: No Symptoms Respiratory: reports: No Symptoms Gastrointestinal: reports: No Symptoms Genitourinary: reports: No Symptoms Breasts: reports: No Symptoms Reported Musculoskeletal: reports: No Symptoms Integumentary: reports: No Symptoms Neurological: reports: No Symptoms Endocrine: reports: No Symptoms Hematology/Lymphatic: reports: No Symptoms Psychiatric: reports: No Symptoms Physical Examination Vital Signs: Vital Signs Temperature 97.6 F 09/19/16 04:12 Pulse Rate 69 09/19/16 04:12 Respiratory Rate 18 09/19/16 04:12 Blood Pressure 106/61 09/19/16 04:12 O2 Sat by Pulse Oximetry (%) 100 09/19/16 01:00 Constitutional: Yes: Well Nourished Eyes: Yes: WNL HENT: Yes: WNL Neck: Yes: WNL Cardiovascular: Yes: WNL Respiratory: Yes: WNL Gastrointestinal: Yes: WNL ...Rectal Exam: Yes: WNL Renal/: Yes: WNL Breast(s): Yes: WNL Musculoskeletal: Yes: WNL Extremities: Yes: WNL Neurological: Yes: WNL Assessment/Plan as above 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
[2016-09-19] MEDS ORDERED: ONDANSETRON 4 MG/2 ML VIAL IVPUSH ONE ×3 (04:38→09:48)
[2016-09-19] MEDS ORDERED: PROPOFOL 20 ML ONE (07:58)
[2016-09-19] MEDS ORDERED: LIDOCAINE HCL/PF 2% SDV 5ML VIAL ONE (07:58)
[2016-09-19] MEDS ORDERED: DEXAMETHASONE SOD PHOSPHATE 4 MG/1 ML VIAL ONE (07:58)
[2016-09-19] MEDS ORDERED: MIDAZOLAM HCL 2 MG/2 ML SINGLE DOSE VIAL ONE (07:58)
[2016-09-19] MEDS ORDERED: oxyCODONE HCL 5 MG TABLET PO PRN ×2 (08:19→09:41)
[2016-09-19] MEDS ORDERED: LACTATED RINGERS SOLUTION 1,000 ML IV SCH ×2 (08:30→09:41)
[2016-09-19] MEDS ORDERED: ONDANSETRON 4 MG/2 ML VIAL ONE (09:31)
[2016-09-19 10:27] LABS: BASOPHIL 0.7 % (0-2.0); EOSINOPHIL 1.5 % (0-4.5); MCH 29.1 pg (25.7-33.7); MCHC 33.4 g/dl (32.0-36.0); MEAN CELL VOLUME 87.2 fl (80-96); MEAN PLT VOLUME 9.9 fl (7.5-11.1); NEUTROPHILS 74.9 % (42.8-82.8); PLATELET COUNT 183 K/MM3 (134-434); RDW 16.3 % (11.6-15.6); WHITE BLOOD COUNT 7.1 K/mm3 (4.0-10.0)
[2016-09-19 14:21] VITALS: TEMP 98
[2016-09-19 15:59] VITALS: BP 104/62; PULSE 80
--- NOTE | 2016-09-20 13:31 | PATH ---
Surgical Pathology Report Patient Name: JHONY JNO Med. Rec. 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 Specimen(s) Received RETAINED CLOTS (POC) Clinical History Incomplete Final Diagnosis RETAINED CLOTS (POC), SUCTION, DILATION AND CURETTAGE WITH EVACUATION OF CLOTS: NO SOMATIC TISSUE IDENTIFIED. CHORIONIC VILLI PRESENT, PARTIALLY FIBROTIC. FRAGMENTS OF DECIDUA, PARTIALLY NECROTIC. FRAGMENTS OF INACTIVE ENDOMETRIUM. Electronically Signed Sp Ga M.D. Gross Description Received in formalin labeled "retained clots" is a 9.0 x 6.5 x 1.0 cm aggregate of red-brown soft tissue fragments. No definite villous tissue or somatic tissue is identified. Professor Of Pathology portions are submitted in 3 cassettes. /09/19/2016 saudi/09/19/2016
--- NOTE | 2016-10-09 02:05 | OP ---
DATE OF OPERATION: DATE OF DICTATION: 10/08/2016 HISTORY OF PRESENT ILLNESS: A 25-year-old female with retained products of conception. POSTOPERATIVE DIAGNOSIS: A 25-year-old female with retained products of conception. PROCEDURE: Suction dilation and curettage. OPERATING SURGEON: Ashley Lewis MD CLIENT ACCOUNT REPRESENTATIVE: None. ANESTHESIA: MAC anesthesia. COMPLICATIONS: None. FINDINGS: Clot tissue identified. DISPOSITION: To recovery room in stable condition. PROCEDURE: Patient was consented prior to entering the operative suite. Patient was put onto the table in the dorsal lithotomy position, prepped and draped in the usual sterile fashion. A 7-Bulgarian curette was placed into the cervix and into the uterine cavity. Gentle suctioning with dilation and curettage technique was undertaken. All specimens were sent to pathology. The patient was sent to recovery room in stable, alert condition. ASHLEY LEWIS M.D. [id number]
== END 2016-09-19 16:12 | disposition home or self-care (01) | DRG 770 ==
LOC: JER 18:29 → JERBED 22:59 → UNDOADMIN 23:53 → J3W 09-19 01:01
PROVIDERS: ADMIT Obstetrics & Gynecology; ATTEND Obstetrics & Gynecology
PROC: 10D17ZZ Extraction of Products of Conception, Retained, Via Natural or Artificial Opening (ICD-10-PCS; principal; 2016-09-19 08:00)
DX: O03.1 Delayed or excessive hemorrhage following incomplete spontaneous abortion (principal); D64.9 Anemia, unspecified; J45.909 Unspecified asthma, uncomplicated; E07.9 Disorder of thyroid, unspecified
CPT/HCPCS: 36415; 76817-TC; 80053; 85025; 85610; 86850; 86900; 86901; 88305-TC; 94760; 99285-25

== ENCOUNTER 2017-07-18 08:12 | Emergency (ER) | payer OTHER ==
[2017-07-18 08:24] VITALS: BP 133/81; PULSE 96; TEMP 99; BMI 31.6
[2017-07-18] MEDS ORDERED: KETOROLAC TROMETHAMINE 60 MG/2 ML VIAL IM ONE ×2 (09:06→09:54)
--- NOTE | 2017-07-18 09:16 | PDOC ---
History of Present Illness - General Chief Complaint: Toothache Stated Complaint: PAIN/ CHEST, LT SIDE Time Seen by Provider: 07/18/17 08:57 History Source: Patient Exam Limitations: No Limitations - History of Present Illness Initial Comments: 07/18/17 09:16 26 yr female with c/o pain to the left side jaw started this AM no fever , pt states she had braces removed and has been given a retainer to wear on the bottom teeth the past 2 days states "it was too tight" and has pain denies diff swallowing took motrin execedrin and a clindamycin (from her mother) this am Severity: severe Past History - Past Medical History Allergies/Adverse Reactions: Allergies Allergy/AdvReac Type Severity Reaction Status Date / Time No Known Allergies Allergy Verified 07/18/17 08:20 Home Medications: Ambulatory Orders Levothyroxine [Synthroid -] 100 mcg PO DAILY 10/20/11 Ibuprofen 800 mg PO TID PRN #25 tablet 07/18/17 Oxycodone HCl/Acetaminophen [Percocet 5-325 mg Tablet] 1 tab PO Q4H PRN #10 tablet MDD 6 tabs 07/18/17 Anemia: Yes Asthma: Yes Cancer: No Cardiac Disorders: No CVA: No COPD: No CHF: No Dementia: No Diabetes: No GI Disorders: No Disorders: No HTN: No Hypercholesterolemia: No Liver Disease: No Seizures: No Thyroid Disease: Yes - Surgical History Abdominal Surgery: Yes () Appendectomy: No Cardiac Surgery: No Cholecystectomy: No Lung Surgery: No Neurologic Surgery: No Orthopedic Surgery: No - Reproductive History (#): 3 Para: 1 Cervical CA: No Dysfunctional Uterine Bleeding: No Ectopic : Yes Endometrial CA: No Polycystic Ovaries: No Therapeutic (s) & number: Yes (X2) Tubal Ligation: No - Immunization History Immunization Up to Date: Yes - Suicide/Smoking/Psychosocial Hx Smoking Status: No Smoking History: Never smoked Have you smoked in the past 12 months: No Number of Cigarettes Smoked Daily: 0 Information on smoking cessation initiated: No Hx Alcohol Use: No Drug/Substance Use Hx: No Substance Use Type: None *Physical Exam - Vital Signs Last Vital Signs Temp Pulse Resp BP Pulse Ox 99 F 96 H 22 133/81 100 07/18/17 08:21 07/18/17 08:21 07/18/17 08:21 07/18/17 08:21 07/18/17 08:21 - Physical Exam General Appearance: Yes: Nourished, Appropriately Dressed HEENT: positive: EOMI, DESHAWN, TMs Normal, Pharyngeal Erythema, Other (left lower jaw no abscess, no palpable tenderness along the gum line or teeth, FROM no trismus). negative: TM Bulging, TM Dull, Excessive drooling, Thrush Neck: positive: Lymphadenopathy (L) Respiratory/Chest: positive: Lungs Clear, Normal Breath Sounds Cardiovascular: positive: Regular Rhythm, Regular Rate Musculoskeletal: positive: Normal Inspection Extremity: positive: Normal Capillary Refill, Normal Inspection, Normal Range of Motion Integumentary: positive: Normal Color, Dry, Warm Neurologic: positive: professor of medicine II-XII NML intact, Fully Oriented, Alert, Normal Mood/ Affect, Normal Response, Motor Strength 5/5 Heart Score/ECG Review - ECG Intrepretation Rhythm: Regular Rhythm Medical Decision Making - Medical Decision Making 07/18/17 09:13 pt with c/o toothache to bottom left started last night, pt recently started wearing a retainer after having her braces removed, has 10/10 pain to left ear jaw and throat will swab for strep non toxic no drooling no abscess appreciated to the dentition or gums percocet now, pt is crying in pain did not drive to ER Reference #: [id number] checked on Istop no narcotic activity *DC/Admit/Observation/Transfer Diagnosis at time of Disposition: Toothache - Discharge Dispostion Disposition: HOME Condition at time of disposition: Good - Prescriptions Prescriptions: Ibuprofen 800 mg PO TID PRN #25 tablet PRN Reason: Pain Oxycodone HCl/Acetaminophen [Percocet 5-325 mg Tablet] 1 tab PO Q4H PRN #10 tablet MDD 6 tabs PRN Reason: Severe Pain - Referrals Referrals: Stephanie Hemphill MD [Primary Care Provider] - - Patient Instructions Additional Instructions: take ibuprofen 800mg every 8hrs for pain take with percocet for severe pain 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
[2017-07-18] MEDS ORDERED: KETOROLAC TROMETHAMINE 30 MG/1 ML VIAL ONE (09:56)
--- NOTE | 2017-07-19 12:22 | EKG ---
Test Reason : Blood Pressure : / mmHG Vent. Rate : 097 BPM Atrial Rate : 097 BPM P-R Int : 212 ms QRS Dur : 074 ms QT Int : 336 ms P-R-T Axes : 074 078 063 degrees QTc Int : 426 ms SINUS RHYTHM WITH 1ST DEGREE A-V BLOCK OTHERWISE NORMAL ECG NO PREVIOUS ECGS AVAILABLE Confirmed by MD FLORENTIN, JAYLAN ([id number]) on 07/19/2017 12:22:05 PM Referred By: Confirmed By:JAYLAN LERMA MD
== END 2017-07-18 11:23 | disposition home or self-care (01) ==
LOC: JERFT 08:12
PROC: 3E0233Z Introduction of Anti-inflammatory into Muscle, Percutaneous Approach (ICD-10-PCS; principal; 2017-07-18)
DX: K08.89 Other specified disorders of teeth and supporting structures (principal)
CPT/HCPCS: 70360-TC; 84703; 87070; 87430; 93005; 93010; 96372; 99282-25

== ENCOUNTER 2018-04-18 08:00 | Emergency (ER) | payer OTHER ==
--- NOTE | 2018-04-18 08:12 | PDOC ---
Attending Attestation - Resident Resident Name: NicojmHetal - HPI HPI: 04/19/18 09:50 Pt presents to the ED complaining of urticarial rash which started yesterday. Also states that she had facial swelling yesterday which resolved with benadryl. Denies shortness of breath, nausea, vomiting or abdominal pain or difficultly swallowing. States that the symptoms began after eating a pie at work. 04/19/18 09:57 - Physicial Exam PE: 04/19/18 09:58 Agree with resident exam. Patient has multiple areas that are pruritic but do not have urticaria. has an area of urticaria on her left leg and left elbow. No facial swelling, lungs are clear. Not tachycardic on my exam. - Medical Decision Making 04/19/18 09:59 Pt presents to the ED complaining of urticaria without systemic symptoms that resolved in the Ed after steroids and benadryl. Will discharge home with referral to java lead developer and epipen. Will also give 4 day course of prednisone.
[2018-04-18 08:13] VITALS: TEMP 98; BMI 32.9
[2018-04-18] MEDS ORDERED: SODIUM CHLORIDE 1,000 ML IV SCH (08:15)
[2018-04-18] MEDS ORDERED: diphenhydrAMINE HCL 50 MG CAPSULE PO ONE (08:20)
[2018-04-18] MEDS ORDERED: predniSONE 20 MG TABLET (UD) PO ONE (08:21)
--- NOTE | 2018-04-18 08:30 | PDOC ---
History of Present Illness - General Chief Complaint: Allergic Reaction Stated Complaint: ALLERGIC REACTION Time Seen by Provider: 04/18/18 08:05 - History of Present Illness Initial Comments: 04/18/18 08:22 27 year old with history of hypothyroidism (on synthyroid), asthma and anemia who presents with hives and itching on the back, arms, knees and ankles since 1200 yesterday. The patient took benadryl 1400 yesterday and had relief of itching but not full relief of the hives. When she awoke this AM she had hives, itching and mild edema around the eyes that has been decreasing since this AM. She denies any true respiratory distress, but is anxious and concerned that her "throat might be closing." She has only had hives one times in the past, when she was 6 months . She denies any other medications use, eating unusual food, inset bites, or new environmental exposures. She denies any other complaints at bedside. PMHX: as in HPI Meds: synthyroid Allergies: NKDA Tob: none Etoh: occasional , last use last night Rec drugs: none Past History - Past Medical History Allergies/Adverse Reactions: Allergies Allergy/AdvReac Type Severity Reaction Status Date / Time No Known Allergies Allergy Verified 04/18/18 08:07 Home Medications: Ambulatory Orders Levothyroxine [Synthroid -] 100 mcg PO DAILY 10/20/11 Epinephrine [Epipen] 0.3 mg IJ PRN #1 auto.injct 04/18/18 Prednisone [Deltasone] 40 mg PO BID #8 tablet 04/18/18 Anemia: Yes Asthma: Yes Cancer: No Cardiac Disorders: No CVA: No COPD: No CHF: No Dementia: No Diabetes: No GI Disorders: No Disorders: No HTN: No Hypercholesterolemia: No Liver Disease: No Seizures: No Thyroid Disease: Yes - Surgical History Abdominal Surgery: Yes () Appendectomy: No Cardiac Surgery: No Cholecystectomy: Yes Lung Surgery: No Neurologic Surgery: No Orthopedic Surgery: No - Reproductive History (#): 3 Para: 1 Cervical CA: No Dysfunctional Uterine Bleeding: No Ectopic : Yes Endometrial CA: No Polycystic Ovaries: No Therapeutic (s) & number: Yes (X2) Tubal Ligation: No - Immunization History Immunization Up to Date: Yes - Suicide/Smoking/Psychosocial Hx Smoking Status: No Smoking History: Never smoked Have you smoked in the past 12 months: No Number of Cigarettes Smoked Daily: 0 Information on smoking cessation initiated: No Hx Alcohol Use: No Drug/Substance Use Hx: No Substance Use Type: None *Physical Exam - Vital Signs Last Vital Signs Temp Pulse Resp BP Pulse Ox 98.0 F 118 H 18 125/78 100 04/18/18 08:08 04/18/18 08:08 04/18/18 08:08 04/18/18 08:08 04/18/18 08:08 - Physical Exam Comments: 04/18/18 08:30 HEENT: unremarkable, some very slight swelling around the eyes. erythematoud hives on upper back, arms, knees, ankles patient her hands and knees extensively at bedside. Medical Decision Making - Medical Decision Making 04/18/18 08:31 27 year old with history of hypothyroidism (on synthyroid), asthma and anemia who presents with hives and itching on the back, arms, knees and ankles since 1200 yesterday. The patient took benadryl 1400 yesterday and had relief of itching but not full relief of the hives. When she awoke this AM she had hives, itching and mild edema around the eyes that has been decreasing since this AM. She denies any true respiratory distress, but is anxious and concerned that her "throat might be closing." She has only had hives one times in the past, when she was 6 months . She denies any other medications use, eating unusual food, inset bites, or new environmental exposures. She denies any other complaints at bedside. DDX including but not limited to: W/U: - TX: - Scores: ED Course: *DC/Admit/Observation/Transfer Diagnosis at time of Disposition: Allergic reaction - Discharge Dispostion Disposition: HOME Condition at time of disposition: Stable Decision to Admit order: No - Prescriptions Prescriptions: Epinephrine [Epipen] 0.3 mg IJ PRN #1 auto.injct Prednisone [Deltasone] 40 mg PO BID #8 tablet - Referrals Referrals: Stephanie Hemphill MD [Primary Care Provider] - Irena Colmenares [Non Staff, Medical] - - Patient Instructions Printed Discharge Instructions: DI for General Allergic Reactions Additional Instructions: You were seen in the ED for complaints of hives and itching. In the ED you were evaluated and treated with benadryl and prednisone. Your showed improvement with this treatment. There does not appear to be an acute need for immediate hospitalization. You are advised to follow up with your Primary Care Physician within 1 week. You were given a referral to an [employer] and are advised to follow up within 1 week. You will be given a prescription for an Epi-pen to be used: - Throat:Tightness of throat, hoarse or scratchy throat, drooling - Breathing:Wheezing, repeated cough or shortness of breath - Heart:Lightheaded feeling, fainting, weak pulse, low blood pressure - Mouth:Swollen tongue, slurred speech or blueness around the lips - Skin:Severe swelling or severe itching of face, scalp, arms or legs not due to eczema, or the appearance of large hives covering the body. - Stomach:Vomiting two or more times or severe stomach cramps To use the Epi-pen: - Grasp with orange tip pointing downward - Remove blue safety cap by pulling straight up do not bend or twist - Person injecting orange side of EpiPen device into thigh, [place] to the thigh - Place the orange tip against the middle of the outer thigh - Swing and push the auto-injector firmly into the thigh until it clicks - Hold firmly in place for 3 seconds count slowly, 1, 2, 3 Return to the ED immediately if you experience worsening hives, itching, redness on the skin, fevers, nausea, vomiting, headaches, diarrhea or constipation. - Post Discharge Activity Forms/Work/School Notes: Back to Work
[2018-04-18] MEDS ORDERED: diphenhydrAMINE HCL 25 MG CAPSULE (FP) PO ONE (08:40)
[2018-04-18] MEDS ORDERED: predniSONE 20 MG TABLET (UD) ONE (08:40)
[2018-04-18] MEDS ORDERED: METOCLOPRAMIDE HCL 10 MG TABLET (FP) PO ONE ×2 (09:09→09:26)
[2018-04-18 10:40] VITALS: BP 96/71; PULSE 88
== END 2018-04-18 11:09 | disposition home or self-care (01) ==
LOC: JER 08:00
DX: L50.9 Urticaria, unspecified (principal); T78.40XA Allergy, unspecified, initial encounter; X58.XXXA Exposure to other specified factors, initial encounter; E03.9 Hypothyroidism, unspecified; J45.990 Exercise induced bronchospasm; D64.9 Anemia, unspecified
CPT/HCPCS: 99283-25

== ENCOUNTER 2019-08-30 08:54 | Emergency (ER) | payer OTHER ==
[2019-08-30 09:02] VITALS: BMI 32.8
--- NOTE | 2019-08-30 09:23 | PDOC ---
History of Present Illness - General Chief Complaint: Pain Stated Complaint: 18 W PREG/COUGH/FEVER/COLD SYMPTOMS Time Seen by Provider: 08/30/19 09:16 History Source: Patient Exam Limitations: No Limitations - History of Present Illness Initial Comments: 08/30/19 09:21 PCP: Dr. Kanchan CARMEN: In [place] HPI: 28yo at 19 weeks PMH hypothyroidism (on synthyroid), asthma, and anemia (4x transfusions) presenting with fevers, chills, cough, sore throat and lower abdominal pain since yesterday. Patient was in [place], awoke yesterday with sore throat, subjective fever, cough, myalgias, fatigue, and headache. In the evening she developed lower abdominal and back pain. She took Tylenol last night with improvement in her headache and myalgias. She denies recent travel, s ick contacts, chest pain, nausea, vomiting, recorded fevers or chills. Does not take her iron supplementation as prescribed. All: NKDA Meds: Synthroid PMH: As above PSH: Back surgery 2015, Lipo August 2018, SHx: Denies toxic habits Past History - Travel Traveled outside of the country in the last 30 days: No Close contact w/someone who was outside of country & ill: No - Past Medical History Allergies/Adverse Reactions: Allergies Allergy/AdvReac Type Severity Reaction Status Date / Time No Known Allergies Allergy Verified 08/30/19 08:58 Home Medications: Ambulatory Orders Levothyroxine [Synthroid -] 100 mcg PO DAILY 10/20/11 Epinephrine [Epipen] 0.3 mg IJ PRN #1 auto.injct 04/18/18 predniSONE [Deltasone] 40 mg PO BID #8 tablet 04/18/18 Anemia: Yes Asthma: Yes Cancer: No Cardiac Disorders: No CVA: No COPD: No CHF: No Dementia: No Diabetes: No GI Disorders: No Disorders: No HTN: No Hypercholesterolemia: No Liver Disease: No Seizures: No Thyroid Disease: Yes - Surgical History Abdominal Surgery: Yes () Appendectomy: No Cardiac Surgery: No Cholecystectomy: Yes Lung Surgery: No Neurologic Surgery: No Orthopedic Surgery: No - Reproductive History (#): 3 Para: 1 Cervical CA: No Dysfunctional Uterine Bleeding: No Ectopic : Yes Endometrial CA: No Polycystic Ovaries: No Therapeutic (s) & number: Yes (X2) Tubal Ligation: No - Immunization History Immunization Up to Date: Yes - Psycho Social/Smoking Cessation Hx Smoking Status: No Smoking History: Never smoked Have you smoked in the past 12 months: No Number of Cigarettes Smoked Daily: 0 Information on smoking cessation initiated: No Hx Alcohol Use: No Drug/Substance Use Hx: No Substance Use Type: None Review of Systems - Review of Systems Able to Perform ROS?: Yes Is the patient limited Scottish proficient: Yes Constitutional: Yes: Fever (sunjective since yesterday), Malaise, Weakness. No: Chills HEENTM: Yes: Throat Pain. No: Recent change in vision, Double Vision, Nose Congestion Respiratory: Yes: Cough. No: Orthopnea, Shortness of Breath, SOB with Exertion, SOB at Rest, Stridor, Wheezing, Productive cough, Hemoptysis Cardiac (ROS): No: Chest Pain, Edema, Palpitations, Chest Tightness ABD/GI: Yes: Nausea, Poor Appetite, Poor Fluid Intake. No: Constipated, Diarrhea, Vomiting : No: Burning, Dysuria, Frequency Musculoskeletal: No: Muscle Pain, Muscle Weakness, Neck Pain Integumentary: No: Bruising, Pruritus, Rash Neurological: Yes: Weakness (generalized). No: Headache, Numbness, Tingling Psychiatric: Yes: Change in Appetite. No: Stressors Endocrine: No: Increased Thirst, Increased Urine Hematologic/Lymphatic: Yes: Anemia (multiple transfusions, noncompliant with iron). No: Blood Clots, Easy Bleeding All Other Systems: Reviewed and Negative *Physical Exam - Vital Signs Last Vital Signs Temp Pulse Resp BP Pulse Ox 98.8 F 92 H 16 116/78 99 08/30/19 08:58 08/30/19 08:58 08/30/19 08:58 08/30/19 08:58 08/30/19 08:58 - Physical Exam 08/30/19 09:44 Vitals reviewed, AFVSS GEN: Well appearing, appears stated age, NAD, uncomfortable. AAOx3. HEENT: NCAT, EOMI, PERRL. Sclera anicteric, non-injected. No facial asymmetry. Dry mucous membranes. Normal voice. Trachea midline. CV: RRR, S1/S2, no murmurs / rubs / gallops appreciated. LUNG: CTAB, normal work of breathing. No wheezes, rales, rhonchi. No cough. Speaking full sentences. GI: Soft, NTND, +BS, no guarding, no rebound. Uterus palpable near umbilicus, non-tender. Neg CVAT b/l. EXTREMITIES: 2+ distal pulses. No LE edema. No obvious deformities of all extremities. SKIN: Warm, dry, no rashes appreciated, non-jaundiced. PSYCH: Normal mood and affect. Cooperative and appropriate. NEURO: CN grossly intact. Moving all extremities well. Normal strength and sensa tion grossly. ED Treatment Course - LABORATORY CBC & Chemistry Diagram: 08/30/19 10:15 08/30/19 10:15 Medical Decision Making - Medical Decision Making 08/30/19 09:20 28yo at 19 weeks PMH hypothyroidism (on synthyroid), asthma, and anemia (4x transfusions) presenting with fevers, chills, cough, sore throat and lower abdominal pain since yesterday. DDX: Influenza, PNA, other viral URI. - Labs, Urine, Swabs - Pelvic exam pending Patient care handed off to attending physician due to concern over COVID-19. Precautions followed, samples collected for CDC. Discharge - Discharge Information Problems reviewed: Yes Clinical Impression/Diagnosis: URI with cough and congestion Condition: Stable Disposition: HOME - Admission No - Follow up/Referral Referrals: Stephanie Hemphill MD [Primary Care Provider] - - Patient Discharge Instructions Patient Printed Discharge Instructions: Medications and , Common Cold Additional Instructions: YOUR URINE WAS NEGATIVE FOR INFECTION. YOU SHOULD FOLLOW UP WITH YOUR OB GYNELOGIST. YOUR BABY IS MOVING ON ULTRASOUND TODAY, AND HAS NORMAL HEART RATE. YOU HAVE BEEN SWABBED FOR DICKENS VIRUS. THE DEPARTMENT OF HEALTH WILL DECIDE IF THE TEST IS TO BE RUN AND WILL CONTACT US WITHIN THE NEXT 24 HOURS. UNTIL YOU HEAR BACK FROM THE DEPARTMENT OF HEALTH, YOU SHOULD SELF QUARANTINE IN YOUR APARTMENT. HOWEVER IF YOU DEVELOP SEVERE WORSENING SHORTNESS OF BREATH OR ANY CONCERNS YOU CAN SEEK REPEAT EVALUATION. YOU CAN USE YOUR ALBUTEROL INHALER 2 PUFFS EVRY 4 HOURS NEEDED FOR WHEEZING COUGH OR DIFFICLTY BREATHING. - Post Discharge Activity Work/Back to School Note: Back to Work
[2019-08-30] MEDS ORDERED: SODIUM CHLORIDE 0.9% 500 ML INFUS.BAG IV ONE (09:40)
[2019-08-30] MEDS ORDERED: ACETAMINOPHEN 1000 MG/100 ML VIAL (NON FORMULARY) IVPB ONE (09:40)
[2019-08-30] MEDS ORDERED: ACETAMINOPHEN INJECTION 100 ML IVPB ONE (09:50)
[2019-08-30] MEDS ORDERED: ONDANSETRON 4 MG/2 ML VIAL ONE (09:51)
[2019-08-30 10:41] LABS: BASO % 0.6 % (0-2.0); EOS % 0.7 % (0-4.5); HEMATOCRIT 33.1 % (32.4-45.2); HEMOGLOBIN 10.8 GM/dL (10.7-15.3); LYMPH % 7.1 % (8-40); MCHC 32.6 g/dl (32.0-36.0); MEAN CELL VOLUME 85.9 fl (80-96); MEAN PLT VOLUME 8.9 fl (7.5-11.1); MONO % 16.4 % (3.8-10.2); NEUT % 75.2 % (42.8-82.8); PLATELET COUNT 195 K/MM3 (134-434); RBC 3.85 M/mm3 (3.60-5.2); RDW 19.4 % (11.6-15.6)
--- NOTE | 2019-08-30 10:49 | PDOC ---
Documentation entered by Susie Tom SCRIBE, acting as scribe for Anastasiya Spence MD. Anastasiya Spence MD: This documentation has been prepared by the Gloria mckeon Nirvannie, SCRIBE, under my direction and personally reviewed by me in its entirety. I confirm that the documentation accurately reflects all work, treatment, procedures, and medical decision making performed by me. Attending Attestation - Resident Resident Name: JeromeBlaine - ED Attending Attestation I have performed the following: I have examined & evaluated the patient, The case was reviewed & discussed with the resident, I agree w/resident's findings & plan, Exceptions are as noted - HPI HPI: 08/30/19 09:58 The patient is a 28 year old 19 weeks female , with a significant past medical history of hypothyroidism (on synthroid), asthma, and anemia (4x transfusions approx 2 units/transfusion, noncompliant with iron supplements), who presents to the emergency department with 2 days of subjective fevers, ch ills, cough, sore throat, and lower abdominal pain. She notes taking Tylenol yesterday, with minimal relief. Patient notes going to work this morning at [employer] but, felt ill prompting her arrival to the ED/ She denies any abnormal vaginal discharge or vaginal bleeding. She denies recent diarrhea or constipation. She denies recent dysuria, frequency, urgency or hematuria. She denies recent chest pain or shortness of breath. Allergies: NKA Primary Care Physician: Dr. Hemphill OBGYN: Bello - Physicial Exam PE: 08/30/19 10:48 awake alert lungs clear bilat heart rrr no mrg abd soft nt nd gravid. ext wwp. skin arm and dry no rash. neuro alert oriented x 3. - Medical Decision Making 08/30/19 10:48 28 yo F 19 weeks , ho asthma here with myalgia, sore throat nicole chills cough and sob x 2 days. 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 did not take any medication viraj. took tylenol last pm. 08/30/19 14:39 pt 08/30/19 14:39 differential asthma exacerbation viral uri, pneumonia, influenzae, ramos considered swabs taken. awaiting call back from [facility]. will call back after 11 pm possibly. pt feels improved would like to go home. refusin cxr. explained to patient concerns for ramos and low risk to baby still refusing cxr. ultrasound performed good movement noted. normal heart rate. flu negative. rsv negative. labs unremarkable. ua pending. 08/30/19 15:00 ua wws negative for infection. culture sent and pending. will dc home.
[2019-08-30] MEDS ORDERED: ONDANSETRON 4 MG/2 ML VIAL IVPUSH ONE (11:07)
[2019-08-30 11:14] LABS: ALBUMIN 3.4 g/dl (3.4-5.0); BILIRUBIN,TOTAL 0.5 mg/dL (0.2-1); CALCIUM 8.4 mg/dL (8.5-10.1); CREATININE 0.7 mg/dL (0.55-1.3); POTASSIUM 3.7 mmol/L (3.5-5.1); TOT PROT 7.1 g/dl (6.4-8.2)
[2019-08-30] MEDS ORDERED: ALBUTEROL SO4 2.5/IPRATROPIUM 0.5 INH SOL 3 ML VIAL.NEB. NEB ONE ×2 (11:33→11:52)
[2019-08-30 12:32] LABS: INR 0.96 (0.83-1.09); PROTHROMBIN TIME (PATIENT) 11.3 SEC (9.7-13.0)
[2019-08-30 14:49] LABS: URINE APPEARANCE Clear; URINE BILIRUBIN Negative (NEGATIVE); URINE COLOR Yellow; URINE GLUCOSE (UA) Negative (NEGATIVE); URINE KETONE 3+ (NEGATIVE); URINE LEUK ESTERASE Negative (NEGATIVE); URINE NITRITE Negative (NEGATIVE); URINE PROTEIN 1+ (NEGATIVE); URINE UROBILINOGEN 0.2 mg/dL (0.2-1.0)
[2019-08-30 15:38] VITALS: BP 120/75; PULSE 88; TEMP 98.4
[2019-08-30 15:57] LABS: URINE WBC 96.6 /hpf (0-5)
[2019-08-30 15:58] LABS: EPI CELLS 62.6 /HPF (0-5/HPF); HYALINE CASTS 63.2 /lpf (0-8); URINE BACTERIA 2123.7 /hpf (NEGATIVE)
== END 2019-08-30 15:15 | disposition home or self-care (01) ==
LOC: JER 08:54
DX: O99.89 Other specified diseases and conditions complicating pregnancy, childbirth and the puerperium (principal); J06.9 Acute upper respiratory infection, unspecified; O99.282 Endocrine, nutritional and metabolic diseases complicating pregnancy, second trimester; O99.012 Anemia complicating pregnancy, second trimester; J45.909 Unspecified asthma, uncomplicated; Z3A.19 19 weeks gestation of pregnancy; Z90.49 Acquired absence of other specified parts of digestive tract
CPT/HCPCS: 36415; 80053; 81003; 85025; 85610; 85730; 86850; 86900; 86901; 87070; 87798; 87804; 87807; 87880; 99284-25; J0131

== ENCOUNTER 2021-03-22 17:20 | Emergency (ER) | payer OTHER ==
[2021-03-22 17:37] VITALS: BP 132/89; PULSE 78; TEMP 97.9; BMI 32.9
[2021-03-22] MEDS ORDERED: SODIUM CHLORIDE 1,000 ML IV STA (18:22)
[2021-03-22 19:28] LABS: BASO % 1.4 % (0-2.0); EOS % 2.2 % (0-4.5); HEMATOCRIT 33.1 % (32.4-45.2); HEMOGLOBIN 10.8 GM/dL (10.7-15.3); LYMPH % 33.3 % (8-40); MCH 28.5 pg (25.7-33.7); MCHC 32.7 g/dl (32.0-36.0); MEAN CELL VOLUME 87.1 fl (80-96); MEAN PLT VOLUME 9.8 fl (7.5-11.1); MONO % 10.3 % (3.8-10.2); NEUT % 52.8 % (42.8-82.8); PLATELET COUNT 295 10^3/uL (134-434); RDW 15.9 % (11.6-15.6); WHITE BLOOD COUNT 4.8 K/mm3 (4.0-10.0)
[2021-03-22 19:49] LABS: INR 0.96 (0.83-1.09); PROTHROMBIN TIME (PATIENT) 11.8 SEC (9.7-13.0)
[2021-03-22 19:51] LABS: ACTIVATED PTT 27.3 SECONDS (25.2-36.5)
[2021-03-22] MEDS ORDERED: OXYTOCIN 20 UNITS in 0.9% NS 20 UNIT/1,000 ML INFUS.BAG IV SCH (20:00)
[2021-03-22 20:03] LABS: EPI CELLS 4 /uL (0-25.1); HYALINE CASTS 0 /uL (0-3.1); PH,URINE 6.5 (5.0-8.0); URINE APPEARANCE CLEAR; URINE BACTERIA 17 /uL (0-1359); URINE BILIRUBIN NEGATIVE (NEGATIVE); URINE COLOR YELLOW; URINE GLUCOSE (UA) NEGATIVE (NEGATIVE); URINE KETONE NEGATIVE (NEGATIVE); URINE LEUK ESTERASE NEGATIVE (NEGATIVE); URINE NITRITE NEGATIVE (NEGATIVE); URINE PROTEIN NEGATIVE (NEGATIVE); URINE RBC 255 /uL (0-23.9); URINE UROBILINOGEN 0.2 mg/dL (0.2-1.0); URINE WBC 4 /uL (0-25.8)
[2021-03-22] MEDS ORDERED: OXYTOCIN 10 UNITS/ML VIAL ONE (20:15)
== END 2021-03-22 23:45 | disposition home or self-care (01) ==
LOC: JER 17:20
PROC: 3E033NZ Introduction of Analgesics, Hypnotics, Sedatives into Peripheral Vein, Percutaneous Approach (ICD-10-PCS; principal; 2021-03-22)
PROC: 3E0337Z Introduction of Electrolytic and Water Balance Substance into Peripheral Vein, Percutaneous Approach (ICD-10-PCS; 2021-03-22)
DX: O03.1 Delayed or excessive hemorrhage following incomplete spontaneous abortion (principal); N93.9 Abnormal uterine and vaginal bleeding, unspecified
CPT/HCPCS: 36415; 76817-TC; 81003; 84702; 85025; 85610; 85730; 86850; 86900; 86901; 87086; 99284-25